=== PATIENT | female | born 1980 | race Caucasian/White ===

== ENCOUNTER 2020-12-23 16:17 | Inpatient (IN) ==
[2020-12-23] MEDS ORDERED: SODIUM CHLORIDE 0.9% 1000ML 1,000 ML IV STA (18:19)
--- NOTE | 2020-12-23 18:30 | Emergency Department Note ---
Impression & Plan Right pulmonary embolus ED Provider Note CHIEF COMPLAINT: Right upper abdominal/flank pain HISTORY OF PRESENTING ILLNESS: This is a 40-year-old female who presents to the emergency department by private vehicle with complaint of right upper abdominal and flank pain for the past 2 days. Patient states that pain started out mild and intermittent, but has become progressively worse and today it was severe and has been fairly constant, is under her right breast and wraps around the side into her right mid to upper back. She currently rates the pain 7/10. She has had some associated nausea and vomiting with the pain. She also notes that the pain feels worse when she takes a deep breath and she has been feeling more short of breath than usual. She is 31 weeks and notes that she saw her net web developer yesterday and had her urine and blood pressure checked and it all seemed normal. She followed up today about the pain and they told her to come to the ER for further evaluation. They specifically want her to have her gallbladder checked. The patient notes that she is followed by [facility] PRODUCTION SUPPORT MANAGER and maternal- medicine due to polyhydramnios with this . She is and her last was 14 years ago. She denies any fevers or chills. She denies any cough, congestion, URI symptoms, or hemoptysis. She notes that she has been having pain in her left calf for the past several months, she was evaluated initially for this and had an ultrasound which was negative for blood clot. She has been doing physical therapy and she feels that this has been gett ing somewhat better. She denies any vaginal bleeding or unusual discharge or passage of fluids. She denies any urinary symptoms. She does note that she has been dealing with hyperemesis gravidarum during her entire and she is currently finishing up a course of steroids for this. REVIEW OF SYSTEMS: A complete 10 point review of systems was reviewed with the patient with pertinent positives and negatives as per history of present illness. All else were negative. PAST MEDICAL HISTORY: No significant past medical or surgical history SOCIAL HISTORY: Lives at home with family, she denies tobacco use ALLERGIES: No known drug allergies PHYSICAL EXAM: CONSTITUTIONAL: Pleasant and cooperative. Nontoxic-appearing and in no acute distress, but appears slightly anxious. Well appearing and well nourished. HEENT: Normocephalic, atraumatic. NECK: Supple, full active range of motion without discomfort. RESPIRATORY: Clear to auscultation bilaterally with no wheezing, crackles, rhonc hi or stridor. Equal expansion bilaterally. CARDIOVASCULAR: Regular rate and rhythm with no murmurs, rubs or gallops. Normal peripheral perfusion. No edema. GASTROINTESTINAL: Tender to palpation in the right upper quadrant and right flank. Gravid abdomen, soft and distended, otherwise nontender. No rebound tenderness or guarding. No palpable masses or HSM. Bowel sounds present in all quadrants. No CVA tenderness bilaterally. MUSCULOSKELETAL: Full range of motion of all joints without discomfort. INTEGUMENTARY: No rash or other significant dermatologic conditions noted. NEUROLOGIC: Alert and oriented X 4 with normal affect. Normal strength and sensation in all 4 extremities. Normal speech. Normal gait observed. ED COURSE AND MEDICAL DECISION MAKING: CC: Patient presenting with complaint of right upper abdominal/flank pain DIFFERENTIAL DIAGNOSIS: Includes, but not limited to cholecystitis, cholelithiasis, choledocholithiasis, peptic ulcer disease, gastritis, GERD, pulmonary embolism, pneumonia, pleurisy, UTI, ureteral stone, pyelonephritis, appendicitis, mesenteric adenitis, ovarian cyst, Edil Sams, early labor, dehydration, among others. INTERPRETATION OF LABS: Leukocytosis, no anemia, normal platelets, no significant electrolyte abnormalities, normal renal function, normal liver enzymes and lipase. Troponin undetectable. D-dimer significantly elevated. UA shows 3+ ketones, 1+ leukocyte esterase with large WBCs but also large epithelial cells and 3+ bacteria. EKG: Shows normal sinus rhythm with a rate of 100 bpm, normal intervals, no ST elevation or depression, no ectopy by my interpretation. No previous EKGs available for comparison. MEDICATION RECONCILIATION: I attest that I have personally reviewed the patient's current medication list. INITIAL VITAL SIGNS REVIEW: I reviewed the patient's initial vital signs and interpret them as follows: T: Afebrile; BP: Normotensive; HR: Mildly tachycardic; RR: Within normal limits; Pulse Ox: Within normal limits on room air. MDM SUMMARY: Patient was evaluated at bedside, history and physical exam performed. Patient is alert and oriented, in no acute distress, resting calmly in stretcher. She is afebrile and nontoxic-appearing, but does appear to be mildly dehydrated and is noted to be tachycardic. Blood pressure is normal. She is significantly tender to palpation in the right upper quadrant and right flank. No acute abdomen. The pain is also pleuritic in nature, she notes that is significantly worse when she takes a deep breath. She had some episodes of nausea and vomiting at home with the severe pain, she denies any nausea currently and is not vomiting. Cardiac monitoring: An order was placed for continuous cardiac monitoring. The monitor shows a rate of 108 bpm with sinus tachycardia rhythm. Labor and delivery were notified of the patient. Emergent/surgical issues will be ruled out here in the emergency department, and if all is negative the patient will then be sent upstairs for additional evaluation. Given the patient's location and pleuritic nature of pain, I do have some concern for a PE. I discussed the option of performing a D-dimer with the patient and will start a work-up to evaluate for possible cholecystitis, she was agreeable with this plan. Orders were placed for labs including troponin and D-dimer, UA, IV fluid bolus for hydration, right upper quadrant ultrasound to evaluate for right upper abdominal/flank pain. The patient was offered something for pain and nausea, she declines at this time. Patient discussed with Dr. Ford, who agrees with my assessment, plan, and disposition. Labs and imaging reviewed, notable for leukocytosis which I suspect is secondary to her state and her recent steroid use, no significant anemia or elec trolyte abnormalities. Renal function, liver enzymes and lipase are normal. Troponin was undetectable. D-dimer was significantly elevated. Ultrasound of the gallbladder shows some sludge, but no evidence for acute cholecystitis. Given the significantly elevated D-dimer and fairly unremarkable gallbladder ultrasound and labs, I did recommend CT imaging. Risks and benefits were discussed with the patient, she agreed to proceed with CT imaging. CTA of the chest and CT abdomen/pelvis with IV contrast were ordered. CT imaging reviewed, no acute findings within the abdomen and pelvis. CTA of the chest shows a small nonocclusive thrombus in the right lower lobe branch of the pulmonary artery, which I suspect is consistent with an acute PE. I spoke on the phone with Dr. Barragan, hematology, she recommended Lovenox 1 mg/kg every 12 hours for treatment of her acute PE. She will need to be switched to unfractionated heparin at 36 weeks gestation prior to delivery. I spoke on the phone with Dr. Barth, MEDIA PRODUCTION SUPPORT MANAGER, who felt it was reasonable that the patient be admitted, and he will consult regarding her . He recommended she be admitted to the medicine service. I spoke on the phone with Dr. Watters, [facility] hospitalist, who agrees to admit the patient. Patient reassessed multiple times throughout ED stay, she has remained hemodynamically stable and afebrile, tachycardia is improving. Her pain remains adequately controlled and she continues to decline anything for pain. The patient and her were updated on all results and plan for admission and starting treatment with Lovenox, all questions were answered to the best of my ability and the patient was agreeable to admission at this time. The patient was stable at time of admission. CRITICAL CARE NOTE: I have personally spent greater than 30 minutes of critical care time in the direct management of this patient. This includes bedside care, interpretation of diagnostic studies, and testing, discussion with consultants, patient, and family members, and other required patient management activities. This 30 minutes is in excess of all separately billable procedures. The chart was completed utilizing [employer] voice recognition software. Grammatical errors, random word insertions, pronoun errors, and incomplete sentences are an occasional consequence of this system due to software limitations, ambient noise, and hardware issues. Any formal questions or concerns about the content, text, or information contained within the body of this dictation should be directly addressed to the nurse practitioner for clarification. Past Med/Surg History Medical History (Updated 12/24/20 @ 00:31 by SHIRA Shannon) No significant past medical history Surgical History History of eye surgery History of wisdom tooth extraction Social History Smoking Status: Never smoker Hx Alcohol Use: No Preferred Language: Tuvaluan marital status: Current Living Situation: Spouse and Family current occupational status: employed Feels Safe at Home: Yes Allergies Allergies Allergy/AdvReac Type Severity Reaction Status Date / Time peanut Allergy Unknown POSITIVE Verified 12/23/20 18:49 ALLERGY TEST--PER PT "EAT PB & J, NO PROBLEMS". Yeast Allergy Unknown POSITIVE Verified 12/23/20 18:49 ALLERGY TEST Pork AdvReac Unknown POSITIVE Uncoded 12/23/20 18:49 ALLERGY TEST--VEGETARIAN--DOESN'T EAT Home Meds Home Medications Medication Instructions Recorded Confirmed ferrous sulfate [iron] 325 mg PO DAILY 12/23/20 12/23/20 methylprednisolone 0 mg PO DIRECTED 12/23/20 12/23/20 multivitamin 1 tab PO DAILY 12/23/20 12/23/20 Results & Data (ED) Vital Signs Vital Signs - 24 hr 12/23/20 16:39 12/23/20 18:39 12/23/20 18:45 Temperature 36.0 C L Temperature Source Temporal Artery Scan Pulse Rate 112 H 105 H Pulse Rate from SpO2 Sensor Respiratory Rate 18 17 Blood Pressure 100/71 120/55 L Blood Pressure Mean 80 76 Pulse Oximetry 98 96 Oxygen Delivery Method Room Air Room Air Sepsis Recent Fever Within 48 Hours No Sepsis New/Unexplained Change in Mental Status N/A Sepsis Action Taken by Nursing No Action Required 12/23/20 19:01 12/23/20 20:40 12/23/20 21:00 Temperature Temperature Source Pulse Rate 99 H 107 H 104 H Pulse Rate from SpO2 Sensor 107 H 100 H Respiratory Rate 21 16 18 Blood Pressure 128/74 97/63 L 109/66 Blood Pressure Mean 92 74 80 Pulse Oximetry 98 99 Oxygen Delivery Method Sepsis Recent Fever Within 48 Hours Sepsis New/Unexplained Change in Mental Status Sepsis Action Taken by Nursing 12/23/20 21:30 12/23/20 22:00 12/23/20 23:00 Temperature Temperature Source Pulse Rate 99 H 97 H 112 H Pulse Rate from SpO2 Sensor 99 H 93 H 112 H Respiratory Rate 19 18 17 Blood Pressure 109/62 104/73 129/68 Blood Pressure Mean 77 83 88 Pulse Oximetry 95 96 99 Oxygen Delivery Method Sepsis Recent Fever Within 48 Hours Sepsis New/Unexplained Change in Mental Status Sepsis Action Taken by Nursing 12/23/20 23:01 12/23/20 23:25 12/23/20 23:30 Temperature Temperature Source Pulse Rate 116 H 110 H 106 H Pulse Rate from SpO2 Sensor 118 H 111 H 106 H Respiratory Rate 23 18 22 Blood Pressure 126/73 129/84 Blood Pressure Mean 90 99 Pulse Oximetry 99 97 98 Oxygen Delivery Method Sepsis Recent Fever Within 48 Hours Sepsis New/Unexplained Change in Mental Status Sepsis Action Taken by Nursing 12/23/20 23:31 12/23/20 23:45 12/24/20 00:00 Temperature Temperature Source Pulse Rate 101 H 117 H 105 H Pulse Rate from SpO2 Sensor 99 H 117 H 103 H Respiratory Rate 20 19 23 Blood Pressure 125/75 122/68 Blood Pressure Mean 91 86 Pulse Oximetry 98 97 98 Oxygen Delivery Method Sepsis Recent Fever Within 48 Hours Sepsis New/Unexplained Change in Mental Status Sepsis Action Taken by Nursing 12/24/20 00:01 Temperature Temperature Source Pulse Rate 97 H Pulse Rate from SpO2 Sensor 100 H Respiratory Rate 19 Blood Pressure Blood Pressure Mean Pulse Oximetry 97 Oxygen Delivery Method Sepsis Recent Fever Within 48 Hours Sepsis New/Unexplained Change in Mental Status Sepsis Action Taken by Nursing Laboratory Data Result diagrams: 12/23/20 18:42 12/23/20 18:42 Lab Results 12/23/20 12/23/20 12/23/20 Range/Units 18:42 18:42 18:42 WBC 14.96 H (4.8-10.8) K/uL RBC 3.85 L (4.2-5.4) M/uL Hgb 12.2 (12.0-16.0) g/dL Hct 36.4 L (37-47) % MCV 94.5 (80-100) fL MCH 31.7 (25-34) pg MCHC 33.5 (32-36) g/dL RDW Std Deviation 50.2 H (36.4-46.3) fL RDW Coeff of Opal 14.7 H (11.5-14.5) % Plt Count 289 (130-400) K/uL MPV 10.4 (7.4-10.4) fL Immature Gran % (Auto) 0.7 % Neut % (Auto) 75.8 % Lymph % (Auto) 14.6 % Jack % (Auto) 8.1 % Eos % (Auto) 0.7 % Baso % (Auto) 0.1 % Neut # (Auto) 11.35 H (1.4-6.5) K/uL Lymph # (Auto) 2.18 (1.2-3.4) K/uL Jack # (Auto) 1.21 H (0.11-0.59) K/uL Eos # (Auto) 0.10 (0-0.5) K/uL Baso # (Auto) 0.02 (0-0.2) K/uL Immature Gran # (Auto) 0.10 H (0.00-0.02) K/uL D-Dimer 2790 H* (0-500) ug/L FEU Sodium 137 (136-145) mmol/L Potassium 3.7 (3.5-5.1) mmol/L Chloride 105 (98-107) mmol/L Carbon Dioxide 22 (21-32) mmol/L Anion Gap 10.0 (3-11) BUN 7 (7-18) mg/dl Creatinine 0.54 L (0.6-1.2) mg/dl Est Cr Clr Drug Dosing 165.7 ml/min Est GFR ( Amer) 137.8 ml/min Est GFR (Non-Af Amer) 118.9 ml/min BUN/Creatinine Ratio 12.8 (10-20) Glucose 76 (70-99) mg/dl Calcium 8.5 (8.5-10.1) mg/dl Total Bilirubin 0.2 (0.2-1) mg/dl AST 9 L (15-37) U/L ALT 13 (12-78) U/L Alkaline Phosphatase 105 (45-117) U/L Troponin I < 0.015 (0-0.045) ng/ml Total Protein 6.7 (6.4-8.2) gm/dl Albumin 2.4 L (3.4-5.0) gm/dl Globulin 4.3 H (2.5-4.0) gm/dl Albumin/Globulin Ratio 0.6 L (0.9-2) Lipase 66 L (73-393) U/L Urine Color Urine Appearance (Clear) Urine pH (4.5-7.5) Ur Specific [place] (1.000-1.030) Urine Protein (Negative) Urine Glucose (UA) (Negative) Urine Ketones (Negative) Urine Blood (Negative) Urine Nitrite (Negative) Urine Bilirubin (Negative) Urine Urobilinogen (Negative) Ur Leukocyte Esterase (Negative) Urine WBC (Auto) (0-5) /hpf Urine RBC (Auto) (0-4) /hpf U Hyaline Cast (Auto) (0-5) /lpf U Epithel Cells (Auto) (0-5) /lpf Urine Bacteria (Auto) (Negative) Urine Yeast COVID-19 Eval Order SARS-CoV-2 (PCR) (Negative) 12/23/20 12/23/20 12/23/20 Range/Units 20:23 23:10 23:10 WBC (4.8-10.8) K/uL RBC (4.2-5.4) M/uL Hgb (12.0-16.0) g/dL Hct (37-47) % MCV (80-100) fL MCH (25-34) pg MCHC (32-36) g/dL RDW Std Deviation (36.4-46.3) fL RDW Coeff of Opal (11.5-14.5) % Plt Count (130-400) K/uL MPV (7.4-10.4) fL Immature Gran % (Auto) % Neut % (Auto) % Lymph % (Auto) % Jack % (Auto) % Eos % (Auto) % Baso % (Auto) % Neut # (Auto) (1.4-6.5) K/uL Lymph # (Auto) (1.2-3.4) K/uL Jack # (Auto) (0.11-0.59) K/uL Eos # (Auto) (0-0.5) K/uL Baso # (Auto) (0-0.2) K/uL Immature Gran # (Auto) (0.00-0.02) K/uL D-Dimer (0-500) ug/L FEU Sodium (136-145) mmol/L Potassium (3.5-5.1) mmol/L Chloride (98-107) mmol/L Carbon Dioxide (21-32) mmol/L Anion Gap (3-11) BUN (7-18) mg/dl Creatinine (0.6-1.2) mg/dl Est Cr Clr Drug Dosing ml/min Est GFR ( Amer) ml/min Est GFR (Non-Af Amer) ml/min BUN/Creatinine Ratio (10-20) Glucose (70-99) mg/dl Calcium (8.5-10.1) mg/dl Total Bilirubin (0.2-1) mg/dl AST (15-37) U/L ALT (12-78) U/L Alkaline Phosphatase (45-117) U/L Troponin I (0-0.045) ng/ml Total Protein (6.4-8.2) gm/dl Albumin (3.4-5.0) gm/dl Globulin (2.5-4.0) gm/dl Albumin/Globulin Ratio (0.9-2) Lipase (73-393) U/L Urine Color Yellow Urine Appearance Cloudy A (Clear) Urine pH 5.0 (4.5-7.5) Ur Specific [place] 1.020 (1.000-1.030) Urine Protein Negative (Negative) Urine Glucose (UA) Negative (Negative) Urine Ketones 3+ H (Negative) Urine Blood Negative (Negative) Urine Nitrite Negative (Negative) Urine Bilirubin Negative (Negative) Urine Urobilinogen Negative (Negative) Ur Leukocyte Esterase 1+ H (Negative) Urine WBC (Auto) >30 H (0-5) /hpf Urine RBC (Auto) 0-4 (0-4) /hpf U Hyaline Cast (Auto) 0 (0-5) /lpf U Epithel Cells (Auto) >30 H (0-5) /lpf Urine Bacteria (Auto) 3+ H (Negative) Urine Yeast Not Reportable COVID-19 Eval [address] Covid[address] [facility] SARS-CoV-2 (PCR) NEGATIVE (Negative) Administered Medications Discontinued Medications Enoxaparin Sodium (Enoxaparin 100 Mg/1ml Syr) 100 mg SQ ONCE STA Stop: 12/23/20 22:40 Last Admin: 12/23/20 22:48 Dose: 100 mg Documented by: [id number] Sodium Chloride (Nss 1000ml) 1,000 mls @ 999 mls/hr IV .Q1H1M STA Stop: 12/23/20 19:19 Last Infusion: 12/23/20 19:56 Dose: 0 mls/hr Documented by: [id number] Admin: 12/23/20 18:48 Dose: 999 mls/hr Documented by: [id number] Ioversol (Optiray 350 500ml) 114 ml IV ONCE ONE Stop: 12/23/20 20:31 Last Admin: 12/23/20 20:30 Dose: 114 ml Documented by: [id number] Imaging Data Radiologist's Impression: Gallbladder Ultrasound 12/23/20 18:19 US gallbladder CLINICAL HISTORY: 40 years-old Female presenting with RUQ/flank pain, n/v, 31 wks . TECHNIQUE: Real-time grayscale ultrasound imaging of the right upper quadrant was performed for a focused evaluation at the site of clinical concern. COMPARISON: None. FINDINGS: Pancreas shows normal ultrasound morphology and no evidence of focal lesions. Liver is within normal limits in size, normal echogenicity and echotexture with parenchyma. No evidence of focal lesions or intrahepatic biliary dilatation. Gallbladder is fluid-filled with small amount of sludge within its dependent portion. Gallbladder wall is measuring 0.2 cm in size. Few focal areas of increased echogenicity within gallbladder wall is seen and might represent adenomyomatosis. Sonographic Ospina's sign is positive. No pericholecystic edema is seen. Common bile duct is nondilated measuring 0.4 cm in size. Right kidney shows normal morphology and no evidence of hydronephrosis. IMPRESSION: 1. Gallbladder sludge, possible adenomyomatosis. No definite sonographic evidence of cholecystitis is seen however sonographic Ospina's sign is positive. Follow-up evaluation might be considered if clinically indicated. 2. Normal appearance of the liver and pancreas. ACT 112: Negative or not required by law. Electronically signed by: Lorraine Oquendo DO 12/23/2020 7:58 PM Abdomen/Pelvis CT 12/23/20 20:10 CT abd pelvis IV con only CLINICAL HISTORY: rt flank/abd pain, 31 wks preg COMPARISON STUDY: None. TECHNIQUE: A dose lowering technique was utilized adhering to the principles of ALARA. FINDINGS: Lower chest: Limited evaluation of lung bases shows no evidence of acute abnormalities.. Liver: The contrast-enhanced liver is normal in size, contour, and attenuation. There is no intrahepatic biliary ductal dilatation. The hepatic veins and portal veins are patent. Gallbladder: Unremarkable. Spleen: Normal in size and attenuation. Pancreas: Unremarkable. Adrenal glands: Unremarkable. Kidneys: There is symmetric renal cortical enhancement. The kidneys are normal in size without hydronephrosis. Pelvic viscera: Urinary bladder is decompressed. parts, placenta and fluid is seen within gravid uterus. Bowel: Bowel loops are nondilated. Appendix is not well seen. Small hiatal hernia is demonstrated. Peritoneum: There is no intraperitoneal free air or abdominal ascites. Vasculature: The abdominal aorta is normal in course and caliber. Adenopathy: None. Skeletal structures: No destructive osseous lesions are seen. IMPRESSION: 1. No acute intra-abdominal process. 2. No hydronephrosis or nephrolithiasis is seen. 3. Appendix is not visualized however there is no inflammatory intra-abdominal process is seen. 4. Intrauterine . Findings were discussed with Dr. Ford at the time of this dictation. ACT 112: Negative or not required by law. The above report was generated using voice recognition software. It may contain grammatical, syntax or spelling errors. Electronically signed by: Lorraine Oquendo DO 12/23/2020 10:07 PM Chest CTA 12/23/20 20:10 CT ANGIOGRAM OF THE CHEST CLINICAL HISTORY: rt flank/abd pain, pleuritic, + dimer, 31 wks preg COMPARISON STUDY: No previous studies for comparison. TECHNIQUE: Following the IV administration of 114 mL of Optiray, CT angiogram of the thorax was performed from the thoracic inlet to the lung bases utilizing the pulmonary embolus protocol. Images are reviewed in the axial, sagittal, and coronal planes. IV contrast was administered without complication. MIP imaging was performed. A dose lowering technique was utilized adhering to the principles of ALARA. CT DOSE: 1579.72 mGy.cm FINDINGS: Adequate opacification of the pulmonary artery. Evaluation of peripheral branches of the pulmonary artery is limited due to motion artifact. Small area of decreased attenuation is seen within right lower lobe pulmonary artery branch and might represent small nonocclusive clot (400/50). No right heart strain is seen. Pulmonary artery is normal in caliber. There is no axillary, supra clavicle or internal mammary lymphadenopathy seen. Visualized portion of thyroid gland shows no evidence of focal lesions. Small hiatal hernia is seen. Aorta is normal in caliber. Tracheobronchial tree is patent. No infiltrates or consolidative lesions are seen. No pleural effusion is demonstrated. Limited evaluation of upper abdominal viscera shows no evidence of acute abnormalities. Osseous structures are unremarkable. IMPRESSION: 1. Small nonocclusive thrombus is seen within right lower lobe branch of the pulmonary artery and could represent subacute or old pulmonary embolus. ACT 112: Negative or not required by law. The above report was generated using voice recognition software. It may contain grammatical, syntax or spelling errors. Electronically signed by: Lorraine Oquendo DO 12/23/2020 9:48 PM Discharge Plan Visit Data Chief Complaint: Abdominal Pain Stated Complaint: ABDOMINAL PAIN 31WK PG- REF-L/D AWARE ED Provider: Laci Ford ED Midlevel Provider: Kayleen Washburn Discharge Problem: Right pulmonary embolus Patient Disposition: Being Evaluated by Hospitalist Condition: Good Forms Stand Alone Forms: [facility], Virtual Emergency Department, Important Visit Information Prescriptions Prescriptions: No Action multivitamin Tablet 1 tab PO DAILY RF: 0 methylprednisolone 4 mg tablet 0 mg PO DIRECTED RF: 0 ferrous sulfate [iron] 325 mg (65 mg iron) Tablet 325 mg PO DAILY RF: 0 Referrals Referrals: Imtiaz Gale MD [Primary Care Provider] -
[2020-12-23 18:49] LABS: Basophils # (auto) 0.02 K/uL (0-0.2); Basophils % (auto) 0.1 %; Eosinophils % (auto) 0.7 %; Hematocrit (blood only) 36.4 % (37-47); Hemoglobin 12.2 g/dL (12.0-16.0); Immature Granulocytes % (auto) 0.7 %; Lymphocytes # (auto) 2.18 K/uL (1.2-3.4); Lymphocytes % (auto) 14.6 %; Mean Corpuscular Hemoglobin 31.7 pg (25-34); Mean Corpuscular Hgb Conc 33.5 g/dL (32-36); Mean Corpuscular Volume 94.5 fL (80-100); Mean Platelet Volume 10.4 fL (7.4-10.4); Monocytes # (auto) 1.21 K/uL (0.11-0.59); Monocytes % (auto) 8.1 %; Neutrophils # (auto) 11.35 K/uL (1.4-6.5); Neutrophils % (auto) 75.8 %; Platelet Count 289 K/uL (130-400); RDW Coefficient of Variation 14.7 % (11.5-14.5); RDW Standard Deviation 50.2 fL (36.4-46.3); Red Blood Count 3.85 M/uL (4.2-5.4); White Blood Count 14.96 K/uL (4.8-10.8)
[2020-12-23 19:05] LABS: Alanine Aminotransferase 13 U/L (12-78); Albumin Level 2.4 gm/dl (3.4-5.0); Aspartate Aminotransferase 9 U/L (15-37); BUN Creatinine Ratio 12.8 (10-20); Blood Urea Nitrogen 7 mg/dl (7-18); Calcium 8.5 mg/dl (8.5-10.1); Carbon Dioxide 22 mmol/L (21-32); Chloride 105 mmol/L (98-107); Creatinine Clr Calc Pharmacy 165.7 ml/min; Est GFR (African American) 137.8 ml/min; Est GFR (Non-African American) 118.9 ml/min; Glucose 76 mg/dl (70-99); Lipase 66 U/L (73-393); Potassium 3.7 mmol/L (3.5-5.1); Sodium 137 mmol/L (136-145)
[2020-12-23 19:07] LABS: D Dimer 2790 ug/L FEU (0-500)
[2020-12-23 19:10] LABS: Albumin Globulin Ratio 0.6 (0.9-2); Alkaline Phosphatase 105 U/L (45-117); Bilirubin,Total 0.2 mg/dl (0.2-1); Globulin 4.3 gm/dl (2.5-4.0); Total Protein 6.7 gm/dl (6.4-8.2); Troponin I < 0.015 ng/ml (0-0.045)
--- NOTE | 2020-12-23 19:59 | Ultrasound Report ---
US gallbladder CLINICAL HISTORY: 40 years-old Female presenting with RUQ/flank pain, n/v, 31 wks . TECHNIQUE: Real-time grayscale ultrasound imaging of the right upper quadrant was performed for a foc used evaluation at the site of clinical concern. COMPARISON: None. FINDINGS: Pancreas shows normal ultrasound morphology and no evidence of focal lesions. Liver is within normal limits in size, normal echogenicity and echotexture with parenchyma. No eviden ce of focal lesions or intrahepatic biliary dilatation. Gallbladder is fluid-filled with small amount of sludge within its dependent portion. Gallbladder wal l is measuring 0.2 cm in size. Few focal areas of increased echogenicity within gallbladder wall is s een and might represent adenomyomatosis. Sonographic Ospina's sign is positive. No pericholecystic ed ivy is seen. Common bile duct is nondilated measuring 0.4 cm in size. Right kidney shows normal morphology and no evidence of hydronephrosis. IMPRESSION: 1. Gallbladder sludge, possible adenomyomatosis. No definite sonographic evidence of cholecystitis i s seen however sonographic Ospina's sign is positive. Follow-up evaluation might be considered if cli nically indicated. 2. Normal appearance of the liver and pancreas. ACT 112: Negative or not required by law. Electronically signed by: Lorraine Oquendo DO 12/23/2020 7:58 PM
[2020-12-23] MEDS ORDERED: OPTIRAY 350 500ml IV ONE (20:30)
[2020-12-23 20:50] LABS: Appearance Urine Cloudy (Clear); Bacteria Urine Automated 3+ (Negative); Bilirubin Urine Negative (Negative); Blood Urine Negative (Negative); Color Urine Yellow; Epithelial Cell Urine Auto >30 /lpf (0-5); Glucose Urine UA Negative (Negative); Ketones Urine 3+ (Negative); Leukocyte Esterase Urine 1+ (Negative); Nitrite Urine Negative (Negative); Protein Urine Negative (Negative); RBC Urine Automated 0-4 /hpf (0-4); Urobilinogen Urine Negative (Negative); WBC Urine Automated >30 /hpf (0-5)
[2020-12-23 21:12] LABS: Cast Urine Automated 0 /lpf (0-5)
--- NOTE | 2020-12-23 21:49 | CT Scan Report ---
CT ANGIOGRAM OF THE CHEST CLINICAL HISTORY: rt flank/abd pain, pleuritic, + dimer, 31 wks preg COMPARISON STUDY: No previous studies for comparison. TECHNIQUE: Following the IV administration of 114 mL of Optiray, CT angiogram of the thorax was perfo rmed from the thoracic inlet to the lung bases utilizing the pulmonary embolus protocol. Images are r eviewed in the axial, sagittal, and coronal planes. IV contrast was administered without complication . MIP imaging was performed. A dose lowering technique was utilized adhering to the principles of AL AWA. CT DOSE: 1579.72 mGy.cm FINDINGS: Adequate opacification of the pulmonary artery. Evaluation of peripheral branches of the pulmonary ar kusum is limited due to motion artifact. Small area of decreased attenuation is seen within right lower lobe pulmonary artery branch and might represent small nonocclusive clot (400/50). No right heart strain is seen. Pulmonary artery is normal in caliber. There is no axillary, supra clavicle or internal mammary lymphadenopathy seen. Visualized portion of thyroid gland shows no evidence of focal lesions. Small hiatal hernia is seen. Aorta is normal in caliber. Tracheobronchial tree is patent. No infiltrates or consolidative lesions are seen. No pleural effusio n is demonstrated. Limited evaluation of upper abdominal viscera shows no evidence of acute abnormalities. Osseous structures are unremarkable. IMPRESSION: 1. Small nonocclusive thrombus is seen within right lower lobe branch of the pulmonary artery and co uld represent subacute or old pulmonary embolus. ACT 112: Negative or not required by law. The above report was generated using voice recognition software. It may contain grammatical, syntax o r spelling errors. Electronically signed by: Lorraine Oquendo DO 12/23/2020 9:48 PM
--- NOTE | 2020-12-23 22:09 | CT Scan Report ---
CT abd pelvis IV con only CLINICAL HISTORY: rt flank/abd pain, 31 wks preg COMPARISON STUDY: None. TECHNIQUE: A dose lowering technique was utilized adhering to the principles of ALARA. FINDINGS: Lower chest: Limited evaluation of lung bases shows no evidence of acute abnormalities.. Liver: The contrast-enhanced liver is normal in size, contour, and attenuation. There is no intrahepa tic biliary ductal dilatation. The hepatic veins and portal veins are patent. Gallbladder: Unremarkable. Spleen: Normal in size and attenuation. Pancreas: Unremarkable. Adrenal glands: Unremarkable. Kidneys: There is symmetric renal cortical enhancement. The kidneys are normal in size without hydron ephrosis. Pelvic viscera: Urinary bladder is decompressed. parts, placenta and fluid is seen within gravi d uterus. Bowel: Bowel loops are nondilated. Appendix is not well seen. Small hiatal hernia is demonstrated. Peritoneum: There is no intraperitoneal free air or abdominal ascites. Vasculature: The abdominal aorta is normal in course and caliber. Adenopathy: None. Skeletal structures: No destructive osseous lesions are seen. IMPRESSION: 1. No acute intra-abdominal process. 2. No hydronephrosis or nephrolithiasis is seen. 3. Appendix is not visualized however there is no inflammatory intra-abdominal process is seen. 4. Intrauterine . Findings were discussed with Dr. Ford at the time of this dictation. ACT 112: Negative or not required by law. The above report was generated using voice recognition software. It may contain grammatical, syntax o r spelling errors. Electronically signed by: Lorraine Oquendo DO 12/23/2020 10:07 PM
[2020-12-23] MEDS ORDERED: ENOXAPARIN 1 MG/KG SQ STA (22:30)
[2020-12-23] MEDS ORDERED: ENOXAPARIN 100 MG/1ML SYR SQ STA (22:39)
[2020-12-24] MEDS ORDERED: ONDANSETRON INJ 2 MG/ML 2 ML VIAL IV PRN (03:44)
[2020-12-24] MEDS: MULTIVITAMIN TAB PO SCH (08:58)
[2020-12-24] MEDS: FERROUS SULFATE 325 MG TAB PO SCH (08:58)
[2020-12-24 09:02] LABS: Basophils # (auto) 0.02 K/uL (0-0.2); Basophils % (auto) 0.2 %; Eosinophils # (auto) 0.09 K/uL (0-0.5); Eosinophils % (auto) 0.7 %; Hematocrit (blood only) 32.1 % (37-47); Hemoglobin 10.6 g/dL (12.0-16.0); Immature Granulocytes # (auto) 0.08 K/uL (0.00-0.02); Immature Granulocytes % (auto) 0.7 %; Lymphocytes # (auto) 1.96 K/uL (1.2-3.4); Lymphocytes % (auto) 16.1 %; Mean Corpuscular Hemoglobin 31.2 pg (25-34); Mean Corpuscular Volume 94.4 fL (80-100); Mean Platelet Volume 10.3 fL (7.4-10.4); Monocytes # (auto) 1.03 K/uL (0.11-0.59); Monocytes % (auto) 8.5 %; Neutrophils # (auto) 8.99 K/uL (1.4-6.5); Neutrophils % (auto) 73.8 %; Platelet Count 267 K/uL (130-400); RDW Coefficient of Variation 14.7 % (11.5-14.5); RDW Standard Deviation 50.2 fL (36.4-46.3); White Blood Count 12.17 K/uL (4.8-10.8)
[2020-12-24 09:35] LABS: BUN Creatinine Ratio 12.5 (10-20); Calcium 8.3 mg/dl (8.5-10.1); Creatinine Clr Calc Pharmacy 177.3 ml/min; Est GFR (African American) 140.4 ml/min; Est GFR (Non-African American) 121.1 ml/min; Magnesium 1.9 mg/dl (1.8-2.4); Potassium 3.8 mmol/L (3.5-5.1)
--- NOTE | 2020-12-24 09:49 | History and Physical Report ---
DATE OF ADMISSION: 12/24/2020 CHIEF COMPLAINT: Right upper quadrant abdominal pain and chest pain. HISTORY OF PRESENT ILLNESS: This is a 40-year-old female with 31 weeks' , history of allergic rhinitis, hyperemesis, dermatofibroma, urticaria, advanced maternal age, multigravida supervision for high-risk polyhydramnios comes here because of right upper quadrant flank pain for the past 2 days. The pain is more when taking deep breath. Some nausea, vomiting that is going on with her .Gallbladder ultrasound was was okay and because of the suspicion for PE, CTA of the chest was done which is showing small nonocclusive thrombosis seen in the right lower branch of the pulmonary artery and could have been subacute or old pulmonary embolism, but because of ongoing symptoms mostlikely acute PE..Patient is following with [facility] RN ANESTHETIST and maternal medicine due to polyhydramnios with this . She is G2, P1. Her last was 14 years ago. The patient is currently resting comfortably and hemodynamically stable. Denies any headache, no blurred vision. No earache, no runny nose, no sore throat, no cough, no fevers. She gets some shortness of breath. Normal bowel and bladder movements. Appetite is okay. ER physician here talked to and was recommended to get started on Lovenox for now and transition to unfractionated heparin at 36 weeks gestation prior to delivery. ER also notified RN ANESTHETIST . ALLERGIES: PEANUT, PORK, YEAST. PAST MEDICAL HISTORY: As mentioned above. PAST SURGICAL HISTORY: Dental surgery. MEDICATIONS: The patient's iron supplements and multivitamins. FAMILY HISTORY: Significant for father has allergies. Mother has allergies and celiac disease and thyroid disorder. SOCIAL HISTORY: , no smoking, no alcohol, no drug use. REVIEW OF SYSTEMS: As per HPI, rest of the review of systems is negative. PHYSICAL EXAMINATION: GENERAL: The patient appears not in acute distress. VITAL SIGNS: Temperature 36, pulse rate 98, respiratory rate 23, blood pressure 118/68, oxygen 98% on room air. HEENT: Pupils equal, round and reactive to light. Oral mucosa moist. NECK: No JVD, no neck masses seen. CARDIOVASCULAR: S1 and S2 heard. Regular rate and rhythm. No murmur, no gallop. RESPIRATORY: Normal AP diameter, no accessory muscle use. No wheeze, no crackles. ABDOMEN: Soft, mild tenderness in right upper quadrant region. No guarding. 31 weeks . CENTRAL NERVOUS SYSTEM: Cranial nerves II through XII are grossly intact. Nonfocal. EXTREMITIES: No edema, no erythema seen. LABORATORY DATA: WBC 14.9, hemoglobin 12.2, hematocrit 36.4, platelets 289. D- dimer 2790. Sodium 137, potassium 3.7, chloride 105, bicarbonate 22, BUN 7, creatinine 0.5, serum glucose 76, calcium 8.5, total bilirubin 0.2, AST 9, ALT 13, alkaline phosphatase 105. Troponin I less than 0.015. Lipase 66. Urinalysis +1 leukocyte esterase +2 bacteria. SARS-CoV-2 PCR negative. Gallbladder ultrasound showing gallbladder sludge, possible adenomyomatosis. No definite sonographic evidence of cholecystitis. [place]spina sign is positive. Normal appearance of the liver and pancreas. CT of the abdomen and pelvis with IV contrast only shows no acute intraabdominal process. No hydronephrosis or nephrolithiasis seen. Appendix is not visualized. Intrauterine . CTA of the chest showing small nonocclusive thrombus is seen in the right lower lobe branch of the pulmonary artery and could represent subacute or old pulmonary embolus. EKG, normal sinus rhythm, rate of 100. No previous ECGs available. ASSESSMENT AND PLAN: A 40-year-old female presents with right quadrant abdominal pain and flank pain and chest pain on deep breath and found to have PE. 1. PE, most likely acute PE because of the ongoing symptoms. ER talked to Dr. Grigsby and was recommended Lovenox 100 units b.i.d. until 36 weeks of and then transition to unfractionated heparin prior to delivery. The first dose of Lovenox was already given.Will follow lower extremity doppler. We will monitor in the hospital. 2. 31 week .Obgyn consulted 3. Dvt px on lovenox 4. Disposition To be determined. Dictation ends here. Job ID: [id number] MTDD
--- NOTE | 2020-12-24 10:29 | Progress Note ---
Date of Service December 24, 2020 Assessment & Plan Admission and Anticipated Discharge Date Admission Date: December 24, 2020 Subjective OSD CLERK Note Pt is 31+gestation with Pe admitted and on Medicine service Pt reviewed with MD apparel fashion designer NST daily L&D aware Results & Data ([facility]) Vital Signs (Past 12 Hours) Vital Signs Temp Pulse Pulse Resp BP BP Pulse Ox 12/24/20 08:01 36.9 C 98 H 20 115/74 96 12/24/20 03:44 36.8 C 12/24/20 03:35 36.8 C 92 H 20 115/67 98 12/24/20 03:00 100 H 21 98 12/24/20 02:30 104 H 20 98 12/24/20 02:00 94 H 24 97 12/24/20 01:30 98 H 23 98 12/24/20 01:01 103 H 17 99 12/24/20 01:00 108 H 16 118/68 99 12/24/20 00:45 103 H 18 106/66 98 12/24/20 00:31 116 H 19 97 12/24/20 00:30 106 H 20 113/60 97 12/24/20 00:01 97 H 19 97 12/24/20 00:00 105 H 23 122/68 98 12/23/20 23:45 117 H 19 125/75 97 12/23/20 23:31 101 H 20 98 12/23/20 23:30 106 H 22 129/84 98 12/23/20 23:25 110 H 18 126/73 97 12/23/20 23:01 116 H 23 99 12/23/20 23:00 112 H 17 129/68 99
[2020-12-24] MEDS ORDERED: ENOXAPARIN 100 MG/1ML SYR SQ SCH (11:00)
--- NOTE | 2020-12-24 11:05 | Ultrasound Report ---
BILATERAL LOWER EXTREMITY VENOUS DOPPLER HISTORY: Possible pulmonary embolus. .. Assess for DVT. COMPARISON STUDY: None. FINDINGS: There is normal compressibility, flow, and augmentation within the bilateral lower extremit y deep venous systems. IMPRESSION: No DVT within the right or left lower extremity. ACT 112: Negative or not required by law. Electronically signed by: Stanley Maldonado M.D. 12/24/2020 11:04 AM
--- NOTE | 2020-12-24 12:02 | Electrocardiogram Report ---
Test Reason : Blood Pressure : / mmHG Vent. Rate : 100 BPM Atrial Rate : 100 BPM P-R Int : 138 ms QRS Dur : 070 ms QT Int : 352 ms P-R-T Axes : 011 003 003 degrees QTc Int : 454 ms Normal sinus rhythm Poor R wave progression, consider anterior UT vs. lead placement vs. LVH Abnormal ECG No previous ECGs available Confirmed by Tod Parekh ([id number]) on 12/24/2020 12:01:28 PM Referred By: REFERRED SELF Confirmed By:Jalil Parekh
--- NOTE | 2020-12-24 17:54 | Hospitalist Progress Note ---
Date of Service December 24, 2020 Assessment & Plan (1) Pleuritic chest pain: admitted with rt sided pleuritic chest pain since Wednesday sharp , worsened with deep breath . CT chest with contrast, initial report suggestive of right lower lobe subsegmental subacute versus chronic pulmonary emboli, Later radiology corrected the report: Does not believe the findings suggestive of pulmonary embolism Patient continues to have pleuritic chest pain 6 out of 10, Has left lower extremities swelling increased warmth, tenderness, Doppler shows no evidence of DVT Discussed at length with SUPERVISOR [employer] -patient's presentation very typical of embolic event, given her chart trimester patient definitely remains at very high risk. Patient is also very concerned about her CT finding, willing to continue with anticoagulation treatment with subcu Lovenox rest of her . Given the risk and benefits consideration, treating patient with anticoagulation until she delivers, will be beneficial Small untreated PE cannot definitely get progressively worse with progression of can cause life-threatening consequences. After discussion with SUPERVISOR [employer] and patient, started with Lovenox therapeutic dose subcu twice daily, Once chest pain symptoms improved, will be discharged therapeutic Lovenox dose ECHO ordered to assess any evidence of rt heart strain (2) Left leg swelling: No lower extremity DVT noted on ultrasound, Patient was seen by her DRIVER'S LICENSE EXAMINER in [place], was told possible left leg superficial thrombophlebitis? Pain control with as needed Tylenol, keep legs elevated, ordered for LEIDA hose Anticoagulation to prevent DVT as above (3) Right upper quadrant pain: Mostly pleuritic, no nausea vomiting or abdominal discomfort normal appetite Gallbladder ultrasound and CT abdomen pelvis does not show any liver or gallbladder pathology Treatment for possible right lower lobe cyst small/subtle segmental PE as outlined above (4) Third trimester : So far uncomplicated third trimester , stable vitals, Appreciate input from SUPERVISOR [employer], Anticoagulation discussion as outlined. Possible urinary tract infection, UA positive for leukocyte esterase, nitrate, WBC and bacteria. Added with Macrodantin as suggestion by SUPERVISOR [employer]INTERING [employer]ANT DVT prophylaxis therapeutic Lovenox dose Discharge: Discharge home once right upper chest pain adequately controlled Admission and Anticipated Discharge Date Admission Date: December 24, 2020 Subjective pt continues to complain of rt sided pleuritic chest pain worsened with deep breath , 6/10 no fever or chills , no cough no nausea or vomiting Review of Systems Review of Systems: All systems reviewed & are unremarkable except as noted in Subjective Physical Exam Physical Exam: Physical exam: General: No acute distress, alert awake oriented x3 HEENT: PERRLA, EOMI, Heart: Regular S1-S2, no carotid bruit, no JVD, Lungs: Clear to auscultate, no wheeze or rales Abdomen: Soft nontender, gravid uterus Extremity: tenderness on rt upper rib area below rt breast , mild swelling /+ tenderness and increased warmth noted on left leg , no erythema or skin lesion Neuro: No focal neurological deficit normal speech, normal visual field, Motor strength : normal both upper and lower extremity, sensation intact Psych: Alert awake oriented x3, normal affect Results & Data Results & [facility] ([facility]) Vital Signs (Past 12 Hours) Vital Signs Temp Pulse Pulse Resp BP Pulse Ox 12/24/20 16:08 36.6 C 108 H 19 112/72 96 12/24/20 13:44 123/80 12/24/20 13:43 36.6 C 95 H 18 97 12/24/20 13:30 95 H 12/24/20 13:00 90 12/24/20 12:30 92 H 12/24/20 12:00 102 H 12/24/20 08:01 36.9 C 98 H 20 115/74 96 12/24/20 08:00 112 H
[2020-12-24] MEDS: ENOXAPARIN 100 MG/1ML SYR SC SCH (18:14)
[2020-12-24] MEDS ORDERED: ACETAMINOPHEN 325 MG TAB PO PRN (18:42)
[2020-12-24] MEDS: NITROFURANTOIN MONOHYDRATE 100 MG CAP PO SCH (20:47)
[2020-12-24 21:56] LABS: Appearance Urine Clear (Clear); Bacteria Urine Automated 1+ (Negative); Bilirubin Urine Negative (Negative); Blood Urine Negative (Negative); Color Urine Yellow; Epithelial Cell Urine Auto >30 /lpf (0-5); Glucose Urine UA Negative (Negative); Ketones Urine Trace (Negative); Leukocyte Esterase Urine 2+ (Negative); Nitrite Urine Negative (Negative); Protein Urine Negative (Negative); RBC Urine Automated 0-4 /hpf (0-4); Specific Gravity Urine 1.008 (1.000-1.030); Urobilinogen Urine Negative (Negative); pH Urine 6.5 (4.5-7.5)
[2020-12-25] MEDS: ENOXAPARIN 100 MG/1ML SYR SC SCH ×2 (06:34→17:47)
[2020-12-25] MEDS: NITROFURANTOIN MONOHYDRATE 100 MG CAP PO SCH (07:55)
[2020-12-25] MEDS: FERROUS SULFATE 325 MG TAB PO SCH (07:55)
[2020-12-25] MEDS: MULTIVITAMIN TAB PO SCH (07:55)
[2020-12-25] MEDS ORDERED: LOVENOX TEACHING KIT ONE (10:31)
[2020-12-25] MEDS ORDERED: CALCIUM CARBONATE 500 MG CHEWABLE TAB PO STA (14:17)
--- NOTE | 2020-12-25 15:41 | Hospitalist Progress Note ---
Date of Service December 25, 2020 Assessment & Plan (1) Pleuritic chest pain: Present on admission with pleuritic chest pain on admission CTA chest initial report suggestive small nonocclusive thrombus is seen within right lower lobe branch of the pulmonary artery and could represent subacute or old pulmonary embolus. Later radiology corrected the report suggested no evidence of pulmonary embolism Doppler of b/l LE showed no DVT within the right or left lower extremity. Patient is also very concerned about her CT finding, willing to continue with anticoagulation treatment with subcu Lovenox during her . I called the Radiology again to discuss about the CTA chest. Spoke to Dr. Cristi Jeong that said there was no evidence of PE. Dr. eJong said that his colleagues reviewed it also and said that there was no PE Case discussed with pulmonology dr. Newell that reviewed the CTA chest and said that there was no evidence of PE Case discussed with OBGYN that agreed to discontinue therapeutic Lovenox for PE since there was no evidence of PE on imaging, but agreed with Lovenox for prophylaxis Case discussed with Dr. Grigsby that recommended Lovenox 40mg daily for prophylaxis Case discussed in detail with patient and agreed with the plan Echo showed no regional wall motion abnormality. Ejection fraction 55 to 60%. No RV strain noted (2) Left leg swelling: No lower extremity DVT noted on ultrasound, Patient was seen by her BULL GANG WORKER in [place], was told possible left leg superficial thrombophlebitis? Pain control with as needed Tylenol, keep legs elevated, ordered for LEIDA hose Anticoagulation to prevent DVT as above (3) Right upper quadrant pain: Mostly pleuritic, no nausea vomiting or abdominal discomfort normal appetite Gallbladder ultrasound and CT abdomen pelvis does not show any liver or gallbladder pathology Treatment for possible right lower lobe cyst small/subtle segmental PE as outlined above (4) Third trimester : So far uncomplicated third trimester , stable vitals, Appreciate input from CATTLE PRODUCERS, Anticoagulation discussion as outlined. Follow up with MILLING SUPERVISOR dr. Hogan Elevated D-Dimer Possible related to CTA chest showed no evidence of PE Doppler LE showed no evidence of DVT Continue Lovenox subq for DVT px Possible urinary tract infection UA positive for leukocyte esterase, nitrate, WBC and bacteria. Urine cx grew multiple organisms Case discussed with OBGYN that recommended 7 days course DVT prophylaxis therapeutic Lovenox dose Discharge: Discharge home today Admission and Anticipated Discharge Date Admission Date: December 24, 2020 Subjective Pt was seen and examined for follow up of pleuritic chest pain Sitting in bed with no distress comfortable Pt said that she feels much better She said that she has pleuritic chest pain with deep breathing Denies any chest pain, palpitation, dizziness and SOB Review of Systems Review of Systems: All systems reviewed & are unremarkable except as noted in Subjective Physical Exam Physical Exam: General- No acute distress Head- atraumatic Eyes- PERRL, EOMI, ENT- oropharynx clear Neck- supple, no JVD Lungs- clear to auscultation Heart- regular rhythm; no murmur Abdomen- normal bowel sounds, soft, nontender Extremities- no calf tenderness Neuro- alert, oriented x 3; PERRL, EOMI; no facial palsy; no dysarthria Skin- warm & dry Results & Data Results & Data ([facility]) Vital Signs (Past 12 Hours) Vital Signs Temp Pulse Pulse Resp BP Pulse Ox 12/25/20 14:48 36.7 C 86 18 109/73 95 12/25/20 10:59 36.7 C 96 H 20 110/74 95 12/25/20 10:08 90 12/25/20 07:14 36.6 C 84 20 104/71 97
--- NOTE | 2020-12-25 17:18 | Discharge Summary ---
Date of Service December 25, 2020 Admission HPI Per Admitting Provider CHIEF COMPLAINT: Right upper quadrant abdominal pain and chest pain. HISTORY OF PRESENT ILLNESS: This is a 40-year-old female with 31 weeks' , history of allergic rhinitis, hyperemesis, dermatofibroma, urticaria, advanced maternal age, multigravida supervision for high-risk polyhydramnios comes here because of right upper quadrant flank pain for the past 2 days. The pain is more when taking deep breath. Some nausea, vomiting that is going on with her .Gallbladder ultrasound was was okay and because of the suspicion for PE, CTA of the chest was done which is showing small nonocclusive thrombosis seen in the right lower branch of the pulmonary artery and could have been subacute or old pulmonary embolism, but because of ongoing symptoms mostlikely acute PE..Patient is following with [facility] [employer] MIR[employer] DEPARTMENT SUPERVISOR and maternal medicine due to polyhydramnios with this . She is G2, P1. Her last was 14 years ago. The patient is currently resting comfortably and hemodynamically stable. Denies any headache, no blurred vision. No earache, no runny nose, no sore throat, no cough, no fevers. She gets some shortness of breath. Normal bowel and bladder movements. Appetite is okay. ER physician here talked to and was recommended to get started on Lovenox for now and transition to unfractionated heparin at 36 weeks gestation prior to delivery. ER also notified [employer] DEPARTMENT SUPERVISOR . Admission Exam Per Admitting Provider GENERAL: The patient appears not in acute distress. VITAL SIGNS: Temperature 36, pulse rate 98, respiratory rate 23, blood pressure 118/68, oxygen 98% on room air. HEENT: Pupils equal, round and reactive to light. Oral mucosa moist. NECK: No JVD, no neck masses seen. CARDIOVASCULAR: S1 and S2 heard. Regular rate and rhythm. No murmur, no gallop. RESPIRATORY: Normal AP diameter, no accessory muscle use. No wheeze, no crackles. ABDOMEN: Soft, mild tenderness in right upper quadrant region. No guarding. 31 weeks . CENTRAL NERVOUS SYSTEM: Cranial nerves II through XII are grossly intact. Nonfocal. EXTREMITIES: No edema, no erythema seen. Principal Diagnosis CHEST PAIN 3RD TRIMESTER Elevated D-Dimer Discharge Exam General- No acute distress Head- atraumatic Eyes- PERRL, EOMI, ENT- oropharynx clear Neck- supple, no JVD Lungs- clear to auscultation Heart- regular rhythm; no murmur Abdomen- normal bowel sounds, soft, nontender Extremities- no calf tenderness Neuro- alert, oriented x 3; PERRL, EOMI; no facial palsy; no dysarthria Skin- warm & dry Discharge Data Allergies Allergy/AdvReac Type Severity Reaction Status Date / Time peanut Allergy Unknown POSITIVE Verified 12/23/20 18:49 ALLERGY TEST--PER PT "EAT PB & J, NO PROBLEMS". Yeast Allergy Unknown POSITIVE Verified 12/23/20 18:49 ALLERGY TEST Pork AdvReac Unknown POSITIVE Uncoded 12/23/20 18:49 ALLERGY TEST--VEGETARIAN--DOESN'T EAT Consultations 12/23/20 22:39 ED Decision to Admit Stat 12/24/20 07:00 Consult Obstetrics Routine Ordered Studies 12/23/20 18:19 US gallbladder Stat 12/23/20 20:10 CT abd pelvis IV con only Stat CT angio chest PE protocol Stat 12/24/20 10:30 US venous doppler LE Routine BILATERAL LOWER EXTREMITY VENOUS DOPPLER HISTORY: Possible pulmonary embolus. .. Assess for DVT. COMPARISON STUDY: None. FINDINGS: There is normal compressibility, flow, and augmentation within the bilateral lower extremity deep venous systems. IMPRESSION: No DVT within the right or left lower extremity. ACT 112: Negative or not required by law. Electronically signed by: Stanley Maldonado M.D. 12/24/2020 11:04 AM ADDENDUM ADDENDUM: There is no pulmonary embolus identified. The questioned abnormality in the right lower lobe pulmonary artery corresponds to minimal mixing artifact. This was called to the patient's nurse Dominique at the time of addendum. Electronically signed by: Cristi Jeong M.D. 12/24/2020 8:[address] ANGIOGRAM OF THE CHEST CLINICAL HISTORY: rt flank/abd pain, pleuritic, + dimer, 31 wks preg COMPARISON STUDY: No previous studies for comparison. TECHNIQUE: Following the IV administration of 114 mL of Optiray, CT angiogram of the thorax was performed from the thoracic inlet to the lung bases utilizing the pulmonary embolus protocol. Images are reviewed in the axial, sagittal, and coronal planes. IV contrast was administered without complication. MIP imaging was performed. A dose lowering technique was utilized adhering to the principles of ALARA. CT DOSE: 1579.72 mGy.cm FINDINGS: Adequate opacification of the pulmonary artery. Evaluation of peripheral branches of the pulmonary artery is limited due to motion artifact. Small area of decreased attenuation is seen within right lower lobe pulmonary artery branch and might represent small nonocclusive clot (400/50). No right heart strain is seen. Pulmonary artery is normal in caliber. There is no axillary, supra clavicle or internal mammary lymphadenopathy seen. Visualized portion of thyroid gland shows no evidence of focal lesions. Small hiatal hernia is seen. Aorta is normal in caliber. Tracheobronchial tree is patent. No infiltrates or consolidative lesions are seen. No pleural effusion is demonstrated. Limited evaluation of upper abdominal viscera shows no evidence of acute abnormalities. Osseous structures are unremarkable. IMPRESSION: 1. Small nonocclusive thrombus is seen within right lower lobe branch of the pulmonary artery and could represent subacute or old pulmonary embolus. ACT 112: Negative or not required by law. The above report was generated using voice recognition software. It may contain grammatical, syntax or spelling errors. Electronically signed by: Lorraine Oquendo DO 12/23/2020 9:48 PM Dictated: 12/23/202135Transcribed: 12/23/202135 CT abd pelvis IV con only CLINICAL HISTORY: rt flank/abd pain, 31 wks preg COMPARISON STUDY: None. TECHNIQUE: A dose lowering technique was utilized adhering to the principles of ALARA. FINDINGS: Lower chest: Limited evaluation of lung bases shows no evidence of acute ab normalities.. Liver: The contrast-enhanced liver is normal in size, contour, and attenuation. There is no intrahepatic biliary ductal dilatation. The hepatic veins and portal veins are patent. Gallbladder: Unremarkable. Spleen: Normal in size and attenuation. Pancreas: Unremarkable. Adrenal glands: Unremarkable. Kidneys: There is symmetric renal cortical enhancement. The kidneys are normal i n size without hydronephrosis. Pelvic viscera: Urinary bladder is decompressed. parts, placenta and fluid is seen within gravid uterus. Bowel: Bowel loops are nondilated. Appendix is not well seen. Small hiatal hernia is demonstrated. Peritoneum: There is no intraperitoneal free air or abdominal ascites. Vasculature: The abdominal aorta is normal in course and caliber. Adenopathy: None. Skeletal structures: No destructive osseous lesions are seen. IMPRESSION: 1. No acute intra-abdominal process. 2. No hydronephrosis or nephrolithiasis is seen. 3. Appendix is not visualized however there is no inflammatory intra-abdominal process is seen. 4. Intrauterine . Findings were discussed with Dr. Ford at the time of this dictation. ACT 112: Negative or not required by law. The above report was generated using voice recognition software. It may contain grammatical, syntax or spelling errors. Electronically signed by: Lorraine Oquendo DO 12/23/2020 10:07 PM Dictated: 12/23/202147Transcribed: 12/23/202147 US gallbladder CLINICAL HISTORY: 40 years-old Female presenting with RUQ/flank pain, n/v, 31 wks . TECHNIQUE: Real-time grayscale ultrasound imaging of the right upper quadrant was performed for a focused evaluation at the site of clinical concern. COMPARISON: None. FINDINGS: Pancreas shows normal ultrasound morphology and no evidence of focal lesions. Liver is within normal limits in size, normal echogenicity and echotexture with parenchyma. No evidence of focal lesions or intrahepatic biliary dilatation. Gallbladder is fluid-filled with small amount of sludge within its dependent portion. Gallbladder wall is measuring 0.2 cm in size. Few focal areas of increased echogenicity within gallbladder wall is seen and might represent adenomyomatosis. Sonographic Ospina's sign is positive. No pericholecystic edema is seen. Common bile duct is nondilated measuring 0.4 cm in size. Right kidney shows normal morphology and no evidence of hydronephrosis. IMPRESSION: 1. Gallbladder sludge, possible adenomyomatosis. No definite sonographic evidence of cholecystitis is seen however sonographic Ospina's sign is positive. Follow-up evaluation might be considered if clinically indicated. 2. Normal appearance of the liver and pancreas. ACT 112: Negative or not required by law. Electronically signed by: Lorraine Oquendo DO 12/23/2020 7:58 PM Dictated: 12/23/201944Transcribed: 12/23/201944 Hospital Course (1) Pleuritic chest pain: Present on admission with pleuritic chest pain on admission CTA chest initial report suggestive small nonocclusive thrombus is seen within right lower lobe branch of the pulmonary artery and could represent subacute or old pulmonary embolus. Later radiology corrected the report suggested no evidence of pulmonary embolism Doppler of b/l LE showed no DVT within the right or left lower extremity. Patient is also very concerned about her CT finding, willing to continue with anticoagulation treatment with subcu Lovenox during her . I called the Radiology again to discuss about the CTA chest. Spoke to Dr. Cristi Jeong that said there was no evidence of PE. Dr. Jeong said that his colleagues reviewed it also and said that there was no PE Case discussed with pulmonology dr. Newell that reviewed the CTA chest and said that there was no evidence of PE Case discussed with OBGYN that agreed to discontinue therapeutic Lovenox for PE since there was no evidence of PE on imaging, but agreed with Lovenox for prophylaxis Case discussed with Dr. Grigsby that recommended Lovenox 40mg daily for prophylaxis Case discussed in detail with patient and agreed with the plan Echo showed no regional wall motion abnormality. Ejection fraction 55 to 60%. No RV strain noted (2) Left leg swelling: No lower extremity DVT noted on ultrasound, Patient was seen by her SCHOLARSHIP COUNSELOR in [place], was told possible left leg superficial thrombophlebitis? Pain control with as needed Tylenol, keep legs elevated, ordered for LEIDA hose Anticoagulation to prevent DVT as above (3) Right upper quadrant pain: Mostly pleuritic, no nausea vomiting or abdominal discomfort normal appetite Gallbladder ultrasound and CT abdomen pelvis does not show any liver or gallbladder pathology Treatment for possible right lower lobe cyst small/subtle segmental PE as outlined above (4) Third trimester : So far uncomplicated third trimester , stable vitals, Appreciate input from [employer] DEPARTMENT SUPERVISOR, Anticoagulation discussion as outlined. Follow up with DATA MANAGEMENT dr. Hogan Elevated D-Dimer Possible related to CTA chest showed no evidence of PE Doppler LE showed no evidence of DVT Continue Lovenox subq for DVT px Possible urinary tract infection UA positive for leukocyte esterase, nitrate, WBC and bacteria. Urine cx grew multiple organisms Case discussed with OBGYN that recommended 7 days course DVT prophylaxis therapeutic Lovenox dose Discharge: Discharge home today Total Time Total Time Spent Total Time Spent (In Minutes): 40 minutes Total Time Includes: Examination of the Patient, Discharge Planning, Medication Reconciliation, Communication With Other Providers and Other Discharge Plan Discharge Items Patient Disposition: Home - Self-Care Reason For Visit: ABDOMINAL / CHEST PAIN Discharge Diagnosis: CHEST PAIN 3RD TRIMESTER Elevated D-Dimer Condition on Discharge: Good Activity: Resume your previous activity Non-emergency contact: Primary Care Provider and Utilities Manager Call non-emergency contact if: you have any medication questions Follow-up/Referrals: Imtiaz Gale MD [Primary Care Provider] - (Date & Time 12/27/2020 12:00 PM Provider Imtiaz Gale MD Department General Internal Medicine [facility] ) Diet: Regular Addtl Attending Provider Instructions: Follow up with your OBGYN ( Please call for the appointment ) Follow up with your primary care provider Dr. Gale on 12/27/2020 @ 12:00 PM at General Internal Medicine [facility] fall precaution Seek medical attention if your symptoms worsening Please take all medications as instructed on discharge list below. It is recommended that you follow-up with your primary care physician within 1-2 weeks of hospital discharge to ensure you are still doing well. Please call if you have any questions or problems. You can reach a [facility] hospitalist on duty at [facility] 24 hours a day by calling [phone] Addtl Cash Analyst Provider Instructions: YOU ARE discharged home Today WITH BLOOD THINNER : LOVENOX SUB CUTANEOUS SHOTS , CONTINUE TO TAKE TILL YOUR WALL M[employer]OR DEPARTMENT SUPERVISOR INSTRUCTS YOU otherwise till end of your , you may not need to continue the blood thinner beyound of no other if not other complication or recurrence of blood clot ( in leg or lungs ) happens . please notify your family physician /music pastor for any evidence of bruising, nose bleed, dark stool , bleeding or spotting per vagina. Avoid Aspirin , aleve, motrin , ibuprofen, advil, naproxen-these can increase your chance for bleeding while on Lovenox please wear leida hose on legs and keep them elevated while sitting to prevent leg and ankle swelling . Pending Studies at Discharge: No Stand-Alone Forms: My [facility] [employer], Smoking Cessation Medications and DC Order Prescriptions: New nitrofurantoin monohyd/m-cryst 100 mg Capsule 100 mg PO BID 7 Days Qty: 14 RF: 0 enoxaparin [Lovenox] 40 mg/0.4 mL syringe 40 mg subcut DAILY 30 Days Qty: 12 RF: 0 Continued multivitamin Tablet 1 tab PO DAILY RF: 0 methylprednisolone 4 mg tablet 0 mg PO DIRECTED RF: 0 ferrous sulfate [iron] 325 mg (65 mg iron) Tablet 325 mg PO DAILY RF: 0 Discharge Orders: Discharge Order (Routine); Ordered 12/25/20 Ordered By: Sarah Macias Admission Data Admit Date/Time: 12/24/20 01:41 Attending Provider: Sarah Macias Admit Provider: Tristan Watters Primary Care Provider: Imtiaz Gale Other Providers: Tristan Watters ; Alejandro Rayo ; Nicole Murillo ; Sarita Medel ; Giovanni Hogan ; Anitra New ; Andrea Bustillo ; Geovany Barth ; Faby De Oliveira ; Hollie Hurd V. ; Kayleen Goetz ; Jannette George ; Paulina Zhou ; Renetta Hamilton ; Verónica Walker
== END 2020-12-25 18:46 | disposition home or self-care (01) | DRG 833 ==
LOC: ED 16:17 → SUATTDRO 12-24 01:41 → 2E 12-24 01:41 → 2N 12-24 16:01